=== PATIENT | male | born 1965 | race Caucasian/White ===

== ENCOUNTER 2024-12-25 11:31 | Emergency (ER) | payer SELFPAY ==
[2024-12-25 11:39] VITALS: BP 176/80; PULSE 84; TEMP 36.7; O2SAT 98
--- OUTSIDE RECORDS SUMMARY | 2024-12-25 11:41 | XMS_ITS | Clinical Summary ---
Author Organization [facility] Address [address] [place] [address] Care Team Providers Care Information Technology Consultant Name Role Phone Yoav Leo (Katy.Jo Ann) Katy.O. Primary Care Pro vider Source Comments NOTE: The information displayed by Care Everywhere is extracted from the complete medical record and may not identify all current or past patient conditions.[facility] Allergies Active Allergy Reactions Criticality Noted Date Comments Penicillins Class Skin Rash and/or Hives 03/18/2022 Hmg-Coa Reductase Inhibitors Other 04/08/2022 Weight loss, body aches Medications Ergocalciferol, Vit D2, (DRISDOL) 1,250 mcg (50,000 unit) Oral CapIndications: VITAMIN D DEFICIENCY Take 1 capsule by mouth every week 12 capsule 06/13/2023 9:29 AM PDT 06/09/2023 06/09/19 26 Active predniSONE (DELTASONE) 50 mg Oral TabIndications: ALLERGIC REACTION, SUBSEQ Take one tablet by mouth at 13 hours, 7 hours, and 1 hour before contrast media injection. 3 tablet 07/02/2023 2:35 PM PDT 06/10/2023 06/10/19 26 Active diphenhydrAMINE (BANOPHEN) 50 mg Oral CapIndications: ALLERGIC REACTION, SUBSEQ Take one tablet by mouth 1 hour before contrast medium. 100 capsule 07/02/2023 2:35 PM PDT 06/10/2023 06/10/19 26 Active Lisinopril (PRINIVIL/ZESTR IL) 2.5 mg Oral TabIndications: ESSENTIAL HTN Take 1 tablet by mouth daily to control blood pressure and/or prevent strokes and help the heart and kidneys 100 tablet 05/03/2024 10:52 PM PDT 04/26/2024 04/27/19 27 Active Carvedilol (COREG) 6.25 mg Oral Tab Take 1 tablet by mouth 2 times a day 200 tablet 2 12/14/2023 12/14/19 26 Active Active Problems Problem Noted Date Diagnosed Date VITAMIN D DEFICIENCY 04/13/2022 CAD WO ANGINA, PRESENCE OF STENT 04/08/2022 HX OF AK, UNSPECIFIED TYPE 04/08/2022 ESSENTIAL HTN 04/08/2022 HYPERLIPIDEMIA 04/08/2022 COLONOSCOPY DONE OUTSIDE IN 202004/08/2022 Overview (04/08/2022): per patient reports due in 10 years for repeat testing. FHX OF CAD 04/08/2022 TOBACCO SMOKER 04/08/2022 EYELID LESION 04/08/2022 Immunizations Immunization Administration Dates Next Due Tdap (Tetanus, diphtheria, acellular pertussis) 10/09/2020 Family History Medical History Relation Comments Dementia Father Diabetes Maternal Grandmother Hypertension Maternal Grandmother Coronary Artery Disease Mother Relation Status Comments Father Maternal Grandfather Maternal Grandmother Mother Alive Paternal Grandfather Paternal Grandmother Social History Tobacco Use Types Packs/Day Years Used Date Smoking Tobacco: Every Day Cigarettes 0.5 40 Passive Smoke Exposure: Never Smokeless Tobacco: Never Tobacco Cessation:Ready to Q uit: Not Asked; Counseling Given: Not Answered Alcohol Use Standard Drinks/Week Comments Yes 14 (1 standard drink = 0.6 oz pu re alcohol) Substance Use Types Use/Week Comments Never Sex and Gender Information Value Date Recorded Sex Assigned at Not on file Legal Sex Male 6:33 PM PST Gender Identity Male 03/18/2022 6:54 PM PST Sexual Orientation Straight 03/18/2022 6: 54 PM PST Last Filed Vital Signs Vital Sign Reading Time Taken Comments Blood Pressure 112/71 04/23/2024 12:37 PM PST Pulse 76 04/23/2024 12:37 PM PST Temperature 36.7 C (98.1 F) 09/13/2023 6:19 PM PDT Respiratory Rate 18 09/13/2023 6:19 PM PDT Oxygen Saturation 98% 09/13/2023 6:19 PM PDT Inhaled Oxygen Concentration - - Weight 76.2 kg (168 lb) 09/13/2023 6:19 PM PDT Height 182.9 cm (6') 09/13/2023 6:19 PM PDT Body Mass Index 22.78 09/13/2023 6:19 PM PDT Plan of Treatment Health Maintenance Due Date Last Done Comments IMM PNEUMOCOCCAL (ADULT RISK) (1 of 2 - PCV) 3 IMM ZOSTER (19 YRS AND OLDER) (1 of 2) 05/19/2013 IMM INFLUENZA (6 MO AND OLDER) (#1) 2024 IMM DTAP,TDAP,TD (42 DAYS-120 YRS) (2 - Td or Tdap) 10/09/2020 Care Teams Information Technology Consultant Relationship Specialty Start Date End Date Yoav Leo (Katy.OVic), D.O. [address] [place] [phone] PCP - General Family Practice 03/01/22
--- OUTSIDE RECORDS SUMMARY | 2024-12-25 11:41 | XMS_ITS | Encounter Summary ---
Author Organization [facility] Address [address] [place] [address] Care Team Providers Care Coin Box Inspector Name Role Phone Yoav Leo) Katy.OVic Primary Care Pro vider Encounter Details Date Type Department Care Team (Late st Contact Info) Description 05/16/2023 Refill FAMILY MEDICINE [address] [place] [address] Yoav Leo (Michael), D.O. [address] [place] [address] Medications Social History Tobacco Use Types Packs/Day Years Used Date Smoking Tobacco: Every Day Cigarettes 0.5 40 Passive Smoke Exposure: Never Smokeless Tobacco: Never Alcohol Use Standard Drinks/Week Comments Yes 14 (1 standard drink = 0.6 oz pu re alcohol) Substance Use Types Use/Week Comments Never Sex and Gender Information Value Date Recorded Sex Assigned at Not on file Legal Sex Male 6:33 PM PST Gender Identity Male 03/18/2022 6:54 PM PST Sexual Orientation Straight 03/18/2022 6: 54 PM PST documented as of this encounter Plan of Treatment Not on file documented as of this encounter Visit Diagnoses Diagnosis VITAMIN D DEFICIENCY documented in this encounter Care Teams Coin Box Inspector Relationship Specialty Start Date End Date Yoav Leo) D.O. [address] [place] [address] PCP - General Family Practice 03/01/22 documented as of this encounter
--- OUTSIDE RECORDS SUMMARY | 2024-12-25 11:42 | XMS_ITS | Encounter Summary ---
Author Organization [facility] Address [address] [facility] [place] [address] Care Team Providers Care Hydraulics Engineer Name Role Phone Yoav Leo) D.O. Primary Care Pro vider Encounter Details Date Type Department Care Team (Late st Contact Info) Description 12/14/2023 Orders Only [facility] IE [facility]-VISITS ADMIN DEPT [address] [place] [address] Scal E-Visit, Provider (Ramírez)Ramírez [address] [place] [address] VACCINATION FOR SARS-COV-2 Social History Tobacco Use Types Packs/Day Years [...] as of this encounter Visit Diagnoses Diagnosis VACCINATION FOR SARS-COV-2 documented in this encounter Care Teams Hydraulics Engineer Relationship Specialty Start Date End Date Yoav Leo), D.O. [address] [place] [address] PCP - General Family Practice 03/01/22 documented as of this encounter
--- NOTE | 2024-12-25 11:43 | XR_ITS ---
WS: [id number] Portable AP upright chest, 12/25/2024 Clinical Data: chest pain Comparison: None. Findings: No nodules, masses or effusions are seen. The heart is normal. The pulmonary vascularity is not increased. No pneumonia or pneumothorax is seen. The diaphragms are flattened. The aortic arch shows minimal calcification. There are old left posterior lateral rib fractures, fourth through sixth ribs. XR/XR chest 1V portable [id number] Impression: Atherosclerosis and hyperinflation.
--- NOTE | 2024-12-25 11:43 | ECG_ITS ---
"[employer] - innovate | mentor | [facility] Test Date: 2024-12-25 Pat Name: Eugene Deleon Department: Room: Gender: Male Snuff Maker: : 1965 Requested By: Stephen Mcgregor Order Number: [id number] Sherrill MD: Lucia Winchester M.D. Measurements Intervals Cobb Rate: 93 P: 44 NC: 146 QRS: 20 QRSD: 70 T: 29 QT: 331 QTc: 413 Interpretive Statements SINUS RHYTHM WITH OCCASIONAL SUPRAVENTRICULAR PREMATURE COMPLEXES INTERPRETATION BASED ON A DEFAULT AGE OF 40 YEARS No previous ECG available for comparison Electronically Signed On 12-26-2024 22:07:38 TELEPHONE CLERK TELEGRAPH OFFICE by Lucia Winchester M.D. [id number]"
[2024-12-25 12:11] LABS: Hematocrit 41.6 % (37-53); Hemoglobin 13.90 g/dL (11.27-16.99); Mean Corpuscular HGB Conc 33.4 g/dL (30-55); Mean Corpuscular Hemoglobin 33.2 pg (27-33); Mean Corpuscular Volume 99.3 fl (82-101); Nucleated Red Blood Cells % 0 %; Platelet Count 332 10^3/cmm (157-399); Red Blood Count 4.19 10^6/uL (3.85-5.65); White Blood Count 6.74 10^3/uL (3.29-11.43)
[2024-12-25 12:30] LABS: Troponin(5th) Baseline 33 ng/L (0-15)
--- NOTE | 2024-12-25 12:40 | ED_ITS ---
HPI - Chest Pain 2 General: Chief Complaint: Chest Pain Stated Complaint: chest pain, L arm tinglinh/numbness Time Seen by Provider: 12/25/24 12:40 History of Present Illness: 59-year-old male presents emergency room with complaints of chest pain. Some shortness of breath been going on throughout the day today did take some aspirin earlier today he also taken a dose of his 's lisinopril. He is not having any chest pain at this time. He does have a history of coronary disease. Associated symptoms: Deny abdominal pain, dyspnea or fever(s) Related Data Previous Rx's ?Medication ?Instructions ?Recorded carvedilol 3.125 mg tablet 3.125 mg PO BID #60 tabs isosorbide mononitrate 30 mg 30 mg PO DAILY #30 tabs 1 02/25/24 tablet,extended release 24 hr Allergies Allergy/AdvReac Type Severity Reaction Status Date / Time Iodinated Contrast Media Allergy Unknown Verified 12/25/24 11:49 Penicillins Allergy Unknown Verified 12/25/24 11:49 Review of Systems 2 Const: Denies: fever(s) or chills Card: Reports: chest pain Resp: Denies: dyspnea GI: Denies: abdominal pain : Denies: dysuria, urinary frequency or urinary urgency Musc: Denies: neck pain or back pain Skin/Breast: Denies: rash Physical Exam 2 Const: GENERAL APPEARANCE: cooperative ORIENTATION/CONSCIOUSNESS: Yes awake, Yes oriented to person, Yes oriented to place and Yes oriented to time HENMT: COMMON NORMALS: normocephalic, atraumatic and hearing grossly normal bilaterally HEAD & SCALP: normocephalic and atraumatic Resp: COMMON NORMALS: normal respiratory effort, No retractions, No use of accessory muscles and clear to auscultation bilaterally AUSCULTATION: clear to auscultation bilaterally Cardio: COMMON NORMALS: regular rate, regular rhythm and No murmurs present (Cardio) RATE: regular rate RHYTHM: regular rhythm GI: COMMON NORMALS: Soft to palpation and No hepatosplenomegaly present A USCULTATION: Yes normoactive bowel sounds PALPATION: Yes Soft to palpation, No Tenderness to palpation present (GI), No Guarding due to palpation present (GI) and Yes No hepatosplenomegaly present Extremity: COMMON NORMALS: normal to inspection, capillary refill normal, no clubbing, cyanosis or edema, no calf tenderness and no pedal edema Neuro: SENSORIUM/ORIENTATION: Yes oriented to person, Yes oriented to place and Yes oriented to time Skin: COMMON NORMALS: no rashes or lesions noted GENERAL SKIN EXAM: no rashes or lesions noted OTHER: Course 2 Vital Signs: Vital signs: Vital Signs Temperature 98.1 F 12/25/24 11:39 Pulse Rate 99 12/25/24 15:33 Respiratory Rate 15 12/25/24 12:58 Blood Pressure 165/104 12/25/24 15:33 Pulse Oximetry 100 12/25/24 15:33 Oxygen Delivery Me thod Room Air 12/25/24 12:58 MDM - Chest Pain Medical Decision Making Labs and imaging reviewed with the patient he states he feels fine he is not having any further symptoms he prefer to go home he has not had some of his medications we will start him on isosorbide and carvedilol encouraged him to follow-up with his primary care doctor soon as he is able. Medical Records I reviewed the patient's medical records. Lab Data I reviewed the patient's lab results. 12/25/24 12:06 12/25/24 12:06 Radiology Impressions Chest X-Ray 12/25/24 11:43 Impression: Atherosclerosis and hyperinflation. Laboratory Results WBC 6.74 10^3/uL (3.29-11.43) 12/25/24 12:06 RBC 4.19 10^6/uL (3.85-5.65) 12/25/24 12:06 Hgb 13.90 g/dL (11.27-16.99) 12/25/24 12:06 Hct 41.6 % (37-53) 12/25/24 12:06 MCV 99.3 fl (82-101) 12/25/24 12:06 MCH 33.2 pg (27-33) H 12/25/24 12:06 MCHC 33.4 g/dL (30-55) 12/25/24 12:06 RDW 12.8 % (12.1-15.1) 12/25/24 12:06 Plt Count 332 10^3/cmm (157-399) 12/25/24 12:06 MPV 9.1 fL (7.4-10.4) 12/25/24 12:06 Neut % (Auto) 68.2 % 12/25/24 12:06 Lymph % (Auto) 19.3 % 12/25/24 12:06 [place] % (Auto) 7.9 % 12/25/24 12:06 Eos % (Auto) 3.0 % 12/25/24 12:06 Baso % (Auto) 1.2 % 12/25/24 12:06 Neut # (Auto) 4.60 10^3/uL (1.8-7.7) 12/25/24 12:06 Lymph # (Auto) 1.3 10^3/uL (0.8-4.8) 12/25/24 12:06 [place] # (Auto) 0.5 10^3/uL (0.2-0.9) 12/25/24 12:06 Eos # (Auto) 0.2 10^3/uL (0.0-0.8) 12/25/24 12:06 Baso # (Auto) 0.1 10^3/uL (0.0-0.1) 12/25/24 12:06 Nucleated RBC % (auto) 0 % 12/25/24 12:06 Nucleated RBCs # 0.0 /100WBC 12/25/24 12:06 Sodium 135 mmol/L (136-145) L 12/25/24 12:06 Potassium 4.4 mmol/L (3.5-5.1) 12/25/24 12:06 Chloride 99 mmol/L (98-107) 12/25/24 12:06 Carbon Dioxide 25 mmol/L (22-29) 12/25/24 12:06 Anion Gap 15.4 (5-19) 12/25/24 12:06 BUN 12 mg/dL (8-23) 12/25/24 12:06 Creatinine 0.8 mg/dL (0.7-1.2) 12/25/24 12:06 GFR Calculation 98.3 mL/min (90-130) 12/25/24 12:06 Glucose 113 mg/dL (65-115) 12/25/24 12:06 Calculated Osmolality 281 mOsm/kg (285-295) L 12/25/24 12:06 Calcium 9.3 mg/dL (8.5-10.5) 12/25/24 12:06 Total Bilirubin 0.6 mg/dL (0.15-1.2) 12/25/24 12:06 AST 15 U/L (0-40) 12/25/24 12:06 ALT 12 U/L (0-41) 12/25/24 12:06 Alkaline Phosphatase 107 U/L (40-130) 12/25/24 12:06 Troponin T Baseline 33 ng/L (0-15) H 12/25/24 12:06 Troponin T 120 Minute 33.15 ng/L (0-15) H 12/25/24 14:09 Delta Troponin T 0.15 ABS# (0-10) 12/25/24 14:09 Total Protein 7.3 g/dL (6.6-8.7) 12/25/24 12:06 Albumin 4.5 g/dL (3.5-5.2) 12/25/24 12:06 Globulin 2.8 g/dL (1.3-4.6) 12/25/24 12:06 All radiology interpretation(s) finalized by discharge ED provider radiology interpretation(s): Mild hyperinflation no acute findings no increased pulmonary congestion no infiltrates EKG Data EKG 1: I personally reviewed and interpreted this EKG as follows: Interpretation: EKG 12/25/2024 11:43 AM sinus rhythm with a COVID occasional PVCs. No acute ST changes noted rate of 93 RI interval 146 QTc 413 no STEMI no EKG for comparison EKG 2: I personally reviewed and interpreted this EKG as follows: Interpretation: EKG 12/25/2024 1346 rate 64 RI interval 144 QTc 405 sinus rhythm with no acute ST elevation. No change from previous EKG. Discharge Plan Discharge Patient Disposition: Home Clinical Impression: Atypical chest pain Condition: Stable Prescriptions: New carvedilol 3.125 mg tablet 3.125 mg PO BID Qty: 60 0RF Rx Instructions: must administer with a meal/food isosorbide mononitrate 30 mg tablet extended release 24 hr 30 mg PO DAILY Qty: 30 0RF Discharge Orders: Discharge ED (Routine); Ordered 12/25/24 Ordered By: Stephen Ventura Discharge Diet: Usual diet Discharge Activity: Limit activity as instructed Patient Instructions: Opioid Safety, Pain Management, Patient Portal & Linda Instructions, Chest Pain (ED) Activity Restrictions/Additional Instructions: [facility]. It is very important that you follow up as instructed or that you return to the Emergency Department should you have concerns or if your condition changes or worsens in any way. Emergency department visits are focused on emergent conditions, in some cases you may require further evaluation on an outpatient basis. You were seen in the emergency room with complaints of chest discomfort your cardiac enzymes did not show any significant increase in your EKG chest x-ray was normal. You be discharged from the emergency room will start you on carvedilol 3.125 twice daily and also on isosorbide mononitrate 30 mg once daily. erp project manager will make arrangements for you to have an outpatient stress test and follow-up with cardiology (Please note that included in your discharge packet is information concerning opioid safety and pain management. This information is given to all patients were discharged from the ER regardless of their discharge diagnosis or the medicines they usually take or are prescribed.) Print Language: Citizen [place] Coding Level of Care Code ED Ethnographic Materials Conservator for Javierg Elisabeth Heart Score HEART Score Components History: Slightly Suspicous EKG: Normal Age: 45-64 yrs Risk Factors: >/=3 Risk Factors Troponin: Baseline Trop 16-45 ng/L HEART Score RESULT HEART Score: 4
[2024-12-25 12:45] LABS: Alanine Aminotransferase 12 U/L (0-41); Albumin Level 4.5 g/dL (3.5-5.2); Alkaline Phosphatase 107 U/L (40-130); Anion Gap 15.4 (5-19); Aspartate Amino Transferase 15 U/L (0-40); Blood Urea Nitrogen 12 mg/dL (8-23); Calcium 9.3 mg/dL (8.5-10.5); Carbon Dioxide 25 mmol/L (22-29); Chloride 99 mmol/L (98-107); Globulin 2.8 g/dL (1.3-4.6); Glucose 113 mg/dL (65-115); Osmolality Calculated 281 mOsm/kg (285-295); Potassium 4.4 mmol/L (3.5-5.1); Sodium 135 mmol/L (136-145); Total Protein 7.3 g/dL (6.6-8.7)
[2024-12-25 12:58] VITALS: BP 164/88; PULSE 80; RESP 15; O2SAT 98
--- NOTE | 2024-12-25 13:46 | ECG_ITS ---
[facility] [facility] Date: 2024-12-25 Pat Name: Eugene Deleon Department: Room: Gender: Male Learning Support Services Director: : 1965 Requested By: Stephen Mcgregor Order Number: [id number] Sherrill MD: Lucia Winchester M.D. Measurements Intervals [place] Rate: 64 P: -2 IL: 144 QRS: 6 QRSD: 89 T: 41 QT: 391 QTc: 405 Interpretive Statements SINUS RHYTHM POSSIBLE RIGHT VENTRICULAR CONDUCTION DELAY [RSR (QR) IN V1/V2] No previous ECG available for comparison Electronically Signed On 12-26-2024 22:26:41 SENIOR INTERACTIVE DEVELOPER by Lucia Winchester M.D. [email or web address] [email or web address]
[2024-12-25 14:38] LABS: Troponin 5 2HR 33.15 ng/L (0-15); Troponin 5 2HR Delta 0.15 ABS# (0-10)
[2024-12-25 15:33] VITALS: BP 165/104; PULSE 99; O2SAT 100
== END 2024-12-25 15:34 | disposition home or self-care (01) ==
PROVIDERS: Emergency Provider Family Medicine
DX: R07.89 Other chest pain (principal)
CPT/HCPCS: 36415; 71045; 80053; 84484; 85025; 93005; 99285